=== PATIENT | male | born 1995 | race Caucasian/White ===

== ENCOUNTER 2018-04-16 17:25 | Emergency (ER) | payer SELFPAY ==
[2018-04-16 17:49] VITALS: BP 148/72
--- NOTE | 2018-04-16 18:22 | ED ---
GI/ HPI - HPI Summary HPI Summary: 23-year-old male presents with inguinal lymphadenopathy for the past month. He states that he was diagnosed with herpes 2 weeks and placed on valacyclovir. He states that the lymphadenopathy started when he started when he had the penile lesions. He states the lesions are gone. He denies any penile discharge. He was tested for other STDs and syphilis and HIV at [facility] and they came back negative. He denies any fevers. He states he has had upper abdominal pain for the past 2 days. He states it is a queasiness in his stomach. He denies any cough. No sore throat. No recent upper respiratory infection. Never had this before. He states lymph nodes are not tender. He states the right lymph node is greater than left. has fam hx of cancer but does not know what kind. No recent leg infection. He has no medical conditions. no night sweats, fevers, or weight loss that was unintentional. no erythema to lymph nodes. no new penile lesions. - History of Current Complaint Chief Complaint: [facility] Time Seen by Provider: 04/16/18 18:02 Stated Complaint: MASSES IN LYMPH NODES Pain Intensity: 0 - Allergy/Home Medications Allergies/Adverse Reactions: Allergies Allergy/AdvReac Type Severity Reaction Status Date / Time No Known Allergies Allergy Verified 04/16/18 17:49 Home Medications: Home Medications Valacyclovir HCl [Valacyclovir] 500 mg PO BID 04/16/18 [History Confirmed ] PMH/Surg Hx/FS Hx/Imm Hx Endocrine/Hematology History: Denies: Hx Anticoagulant Therapy Respiratory History: Denies: Hx Asthma Infectious Disease History: Yes Infectious Disease History: Reports: Traveled Outside the [place] in Last 30 Days - [place] - Family History Known Family History: Positive: Other - [place] - Social History Alcohol Use: None Substance Use Type: Reports: Marijuana Substance Use Comment - Amount & Last Used: ooccasional Smoking Status (MU): Never Smoked Tobacco Review of Systems Negative: Fever Negative: Chest Pain Negative: Shortness Of Breath Positive: Other - enlarge lymph nodes All Other Systems Reviewed And Are Negative: Yes Physical Exam Triage Information Reviewed: Yes Vital Signs On Initial Exam: Initial Vitals Temp Pulse Resp BP Pulse Ox 98.7 F 91 16 148/72 100 04/16/18 17:43 04/16/18 17:43 04/16/18 17:43 04/16/18 17:43 04/16/18 17:43 Vital Signs Reviewed: Yes Appearance: Positive: Well-Appearing Skin: Positive: Warm, Dry Head/Face: Positive: Normal Head/Face Inspection Eyes: Positive: Normal, Conjunctiva Clear ENT: Positive: Pharynx normal Respiratory/Lung Sounds: Positive: Clear to Auscultation, Breath Sounds Present Cardiovascular: Positive: Normal, RRR Abdomen Description: Positive: Nontender, Soft Bowel Sounds: Positive: Present Male Genital Exam: Positive: Normal Genitalia, Other - 1 1/2cm lymphadenopathy on right and 1cm lymphadenopathy on right. Negative: Inguinal Tenderness, Lesions Musculoskeletal: Positive: Normal Neurological: Positive: Normal Diagnostics - Vital Signs Vital Signs Temp Pulse Resp BP Pulse Ox 04/16/18 17:43 98.7 F 91 16 148/72 100 - Laboratory Lab Statement: Any lab studies that have been ordered have been reviewed, and results considered in the medical decision making process. [facility] Course/Dx - Course Course Of Treatment: 23-year-old male presents with inguinal lymphadenopathy for the past month. He states that he was diagnosed with herpes 2 weeks and placed on valacyclovir. He states that the lymphadenopathy started when he started when he had the penile lesions. He states the lesions are gone. He denies any penile discharge. He was tested for other STDs and syphilis and HIV at [facility] and they came back negative. He denies any fevers. He states he has had upper abdominal pain for the past 2 days. He states it is a queasiness in his stomach. He denies any cough. No sore throat. No recent upper respiratory infection. Never had this before. He states lymph nodes are not tender. He states the right lymph node is greater than left. has fam hx of cancer but does not know what kind. No recent leg infection. He has no medical conditions. no night sweats, fevers, or weight loss that was unintentional. no erythema to lymph nodes. no new penile lesions. on exam has 1 1/2cm lymph node felt on right and 1cm on left. nontender. no rash. normal gentila exam. does not have primary in area so will get basic CBC and RPR. discussed with dr Watson and will give referral to surgery to see if consider bx it although likely reactive. will give [facility] to [facility] to [facility]. blood pressure is elevated at this visit but can follow up with primary. patient understand and agrees with plan. - Diagnoses Differential Diagnoses - Male: Herpes Symplex, STD, Syphilis, Other - lymphoma Provider Diagnoses: Inguinal lymphadenopathy Discharge - Sign-Out/Discharge Documenting (check all that apply): Patient Departure - Discharge Plan Condition: Good Disposition: HOME Patient Education Materials: Lymphadenopathy (ED) Referrals: [facility] [Outside] Jose Aleman MD [Medical Doctor] - Additional Instructions: A referral was given for [facility] that can act as your temporary primary for follow up for this issue A referral also given for surgery Likely still a reactive lymphadenopathy from the previous infection Return to if develop any new or worsening symptoms - Billing Disposition and Condition Condition: GOOD Disposition: Home
[2018-04-17 11:19] LABS: Hematocrit 46 % (42-52); Hemoglobin 15.6 g/dl (14.0-18.0); Mean Corpuscular HGB Conc 34 g/dl (31-36); Mean Corpuscular Hemoglobin 31 pg (27-31); Mean Corpuscular Volume 92 fL (80-94); Platelet Count 123 10^3/ul (150-450); Red Blood Count 5.01 10^6/ul (4.00-5.40); Red Cell Distribution Width 14 % (10.5-15); White Blood Count 6.9 10^3/ul (3.5-10.8)
[2018-04-17 11:20] LABS: ABS Basophils 0 10^3/ul (0-0.2); ABS Eosinophils 0.1 10^3/ul (0-0.6); ABS Lymphocytes 1.8 10^3/ul (1.0-4.8); ABS Monocytes 0.4 10^3/ul (0-0.8); ABS Neutrophils 4.5 10^3/ul (1.5-7.7); ABS Nucleated RBC 0 10^3/ul; Eosinophil % 1.5 % (0-6); Lymphocyte % 26.5 % (25-47); Mean Platelet Volume 11.6 um3 (7.4-10.4); Nucleated Red Blood Cells % 0.1
--- NOTE | 2018-04-18 07:26 | UC ---
- Progress Note Progress Note: darline notify pt his platelet count is slightly low needs to be rechecked by his provider Course/Dx - Diagnoses Provider Diagnoses: Inguinal lymphadenopathy Discharge - Sign-Out/Discharge Documenting (check all that apply): Post-Discharge Follow Up - Discharge Plan Condition: Good Disposition: HOME Patient Education Materials: Lymphadenopathy (ED) Referrals: [facility] [Outside] Jose Aleman MD [Medical Doctor] - Additional Instructions: A referral was given for [facility] that can act as your temporary primary for follow up for this issue A referral also given for surgery Likely still a reactive lymphadenopathy from the previous infection Return to UC if develop any new or worsening symptoms - Billing Disposition and Condition Condition: GOOD Disposition: Home
== END 2018-04-16 18:42 | disposition home or self-care (01) ==
LOC: UCEAST 17:25
DX: R59.0 Localized enlarged lymph nodes (principal); Z80.9 Family history of malignant neoplasm, unspecified
CPT/HCPCS: 36415; 85025; 86592; 86703; 87491; 87591; 99201; G0463